=== PATIENT | female | born 1980 | race Caucasian/White ===

== ENCOUNTER 2020-11-11 13:04 | Emergency (ER) | payer SELFPAY ==
--- NOTE | 2020-11-11 13:31 | ED Physician Documentation ---
PD HPI CHEST PAIN - Stated complaint Stated Complaint: C+ SOA/CHEST PX - History obtained from History obtained from: Patient - Additional information Additional information: 40-year-old woman was tested for Covid 3 weeks ago and was negative, her son and tested positive at that time. 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 She had headaches and body aches at the time and was retested 8 days ago because of persistent headaches and was positive for Covid. Now over the last 2 days she has central chest pain radiating to both axillae worse with breathing and mild shortness of breath. No pedal edema or calf pain. Review of Systems Ten Systems: 10 systems reviewed and negative Constitutional: reports: Chills, Fatigue. denies: Fever Cardiac: reports: Chest pain / pressure. denies: Palpitations Respiratory: reports: Dyspnea. denies: Cough PD ED PE NORMAL - Vitals Vital signs reviewed: Yes - General General: Alert and oriented X 3, No acute distress - HEENT HEENT: PERRL, EOMI - Neck Neck: Supple, no meningeal sign, No bony TTP - Cardiac Cardiac: RRR, No murmur - Respiratory Respiratory: No respiratory distress, Clear bilaterally - Abdomen Abdomen: Non tender - Back Back: No CVA TTP, No spinal TTP - Derm Derm: Normal color, Warm and dry - Extremities Extremities: No edema, No calf tenderness / cord - Neuro Neuro: Alert and oriented X 3, Normal speech Results - Vitals Vitals: Vital Signs - 24 hr 11/11/20 14:20 Temperature 36.7 C Heart Rate 72 Respiratory 16 Rate Blood Pressure 110/65 O2 Saturation 100 Oxygen O2 Source Room air - EKG (time done) 1325 Rate: Rate (enter#) (87) Rhythm: NSR [place]: Normal Intervals: Normal ND QRS: Normal Ischemia: Normal ST segments Computer interpretation: Agree with computer - Labs Labs: Laboratory Tests 11/11/20 11/11/20 11/11/20 13:45 13:45 13:45 WBC 5.9 RBC 4.47 Hgb 12.6 Hct 37.7 MCV 84.3 MCH 28.2 MCHC 33.4 RDW 13.5 Plt Count 325 MPV 9.7 Neut # (Auto) 3.8 Lymph # (Auto) 1.6 [place] # (Auto) 0.3 Eos # (Auto) 0.1 Baso # (Auto) 0.1 Absolute Nucleated RBC 0.00 Nucleated RBC % 0.0 Sodium 137 Potassium 3.9 Chloride 102 Carbon Dioxide 25 Anion Gap 10.0 BUN 17 Creatinine 0.8 Estimated GFR (MDRD) 79 L Glucose 113 H Calcium 9.3 Troponin I High Sens < 2.3 L - Rads (name of study) CT angiography of the chest PE protocol was negative for pneumonia or PE. Radiology: EMP read contemporaneously PD MEDICAL DECISION MAKING - ED course ED course: 40-year-old woman with known Covid presents with nonspecific chest pain, basic ally normal exam. For multiple reasons does not fit criteria for Mab therapy, because of length of time symptomatic and also lack of other indications. Differential diagnosis includes Covid pneumonia, pleuritic chest pain, PE, myocarditis and we will check for all. We discussed the diagnostic modalities available to check for PE, either D-dimer versus CT angiography immediately and discussed the limitations of D-dimer in the setting of known positive Covid given that it is an acute phase reactant and she opted to go straight to CTA. Departure - Departure Disposition: 01 Home, Self Care Clinical Impression: Pleurisy, COVID-19 Condition: Good Record reviewed to determine appropriate education?: Yes Instructions: ED Viral Syndrome Comments: As discussed, no evidence of blood clot or other serious issue today. Ibuprofen as needed for the pain. Return for new or worsening symptoms.
[2020-11-11 13:54] LABS: BASOPHILS # (AUTO) 0.1 10^3/uL (0.0-0.1); BASOPHILS % (AUTO) 1.2 %; EOSINOPHILS # (AUTO) 0.1 10^3/uL (0.0-0.7); HCT - HEMATOCRIT 37.7 % (37.0-47.0); HGB - HEMOGLOBIN 12.6 g/dL (12.0-16.0); LYMPHOCYTES # (AUTO) 1.6 10^3/uL (1.5-3.5); LYMPHOCYTES % (AUTO) 26.7 %; MEAN CORPUSCULAR HEMOGLOBIN 28.2 pg (27.0-31.0); MEAN CORPUSCULAR HGB CONC 33.4 g/dL (32.0-36.0); MEAN CORPUSCULAR VOLUME 84.3 fL (81.0-99.0); MEAN PLATELET VOLUME 9.7 fL (7.9-10.8); MONOCYTES # (AUTO) 0.3 10^3/uL (0.0-1.0); MONOCYTES % (AUTO) 5.6 %; NEUTROPHILS # (AUTO) 3.8 10^3/uL (1.5-6.6); NEUTROPHILS % (AUTO) 64.2 %; PLT - PLATELET COUNT 325 10^3/uL (130-450); RED BLOOD COUNT 4.47 10^6/uL (4.20-5.40); RED CELL DISTRIBUTION WIDTH 13.5 % (12.0-15.0); WHITE BLOOD COUNT 5.9 x10^3/uL (4.8-10.8)
[2020-11-11 14:09] LABS: CALCIUM 9.3 mg/dL (8.5-10.3); CREATININE 0.8 mg/dL (0.4-1.0); POTASSIUM 3.9 mmol/L (3.5-5.0)
--- NOTE | 2020-11-11 15:48 | CT Report ---
PROCEDURE: ANGIO CHEST W/WO INDICATIONS: Dyspnea, PE protocol, Covid pos CONTRAST: IV CONTRAST: Isovue 300 ml: 80 PO CONTRAST: *NO PO CONTRAST TECHNIQUE: After the administration of intravenous contrast, images were acquired from the pulmonary apices to t he posterior costophrenic angles. 3-dimensional maximum intensity projection (MIP) coronal and sagit nay reformats were then acquired through the thorax. For radiation dose reduction, the following was used: automated exposure control, adjustment of mA and/or kV according to patient size. COMPARISON: None FINDINGS: Image quality: Excellent. Pulmonary arteries: Pulmonary arteries are normal in size, and demonstrate no intraluminal filling d efects to suggest central pulmonary embolism. Lungs and pleura: Mild bibasilar dependent atelectasis is seen. No acute airspace opacity. No pleural effusions or pneumothorax. Central and peripheral airways are patent. Mediastinum: Heart size is normal, without pericardial effusion. No mediastinal or hilar adenopathy . Thoracic aorta is normal in caliber and enhancement. Esophagus is normal in caliber, with a small to moderate-sized hiatal hernia. Bones and chest wall: No suspicious bony lesions. Ribs and thoracic spine appear intact throughout. No axillary or supraclavicular adenopathy. The thyroid is normal in size and there are no incident al findings. Abdomen: Visualized upper abdominal solid organs appear normal in the early arterial phase of enhanc ement. Gallbladder is surgically absent. IMPRESSION: 1. No evidence of pulmonary emboli. No thoracic aortic aneurysm. 2. Bibasilar dependent atelectasis. Bilateral lungs are otherwise clear. 3. No mediastinal or hilar lymphadenopathy. 4. Small to moderate size hiatal hernia. CLINICAL RECOMMENDATION STATEMENTS: In patients <35 years with an ITN detected on CT, MRI, or extrathyroidal ultrasound, the Committee re commends further evaluation with dedicated thyroid ultrasound if the nodule is ?1 cm and has no suspi cious imaging features, and if the patient has normal life expectancy. In patients ?35 years with an ITN detected on CT, MRI, or extrathyroidal ultrasound, the Committee re commends further evaluation with dedicated thyroid ultrasound if the nodule is ?1.5 cm and has no yuliya picious imaging features, and if the patient has normal life expectancy. (ACR, 2014) Reviewed by: Blaise Braun MD on 11/11/2020 3:47 PM PDT Approved by: Blaise Braun MD on 11/11/2020 3:47 PM PDT Station ID: [id number]
[2020-11-11] MEDS ORDERED: IOPAMIDOL-300 100 ML VIAL IVP ONE (15:52)
[2020-11-11] MEDS ORDERED: IOPAMIDOL-300 100 ML VIAL ONE (16:12)
[2020-11-11 16:38] VITALS: BP 117/78
== END 2020-11-11 16:38 | disposition home or self-care (01) ==
LOC: ED 13:04
DX: U07.1 COVID-19 (principal); R09.1 Pleurisy
CPT/HCPCS: 36415; 71275; 80048; 84484; 85025; 93005; 99283; 99284; Q9967